=== PATIENT | male | born 1990 | race Caucasian/White ===

== ENCOUNTER 2018-11-12 05:48 | Emergency (ER) | payer MEDICAID, OTHER ==
[~2018-11-12] VITALS: Ht 193 cm; Wt 70.2 kg
[2018-11-12 05:55] VITALS: BP 125/82
--- NOTE | 2018-11-12 06:40 | NUR ---
Patient/Caregiver given discharge instructions and they have confirmed that they understand the instructions. Patient ambulatory with steady gait.
== END 2018-11-12 06:41 | disposition home or self-care (01) ==
LOC: ED 06:14
DX: L73.2 Hidradenitis suppurativa (principal)
CPT/HCPCS: 99283